=== PATIENT | female | born 1970 | race Two or more races ===

== ENCOUNTER → 2020-10-29 | Emergency (ER) | payer OTHER ==
[~2020-10-29] VITALS: Ht 152.4 cm; Wt 90.7 kg
[~2020-10-29] MED LIST: CLONAZEPAM1 M1; ZOLOFT20 MG/1 ML
== END | disposition home or self-care (01) ==
LOC: ER 11:46
DX: R00.2 Palpitations (principal); F06.4 Anxiety disorder due to known physiological condition

== ENCOUNTER → 2021-06-14 | Emergency (ER) | payer OTHER | END | disposition left against medical advice (07) | LOC: ER 14:08 | DX: Z53.21 Procedure and treatment not carried out due to patient leaving prior to being seen by health care provider (principal) ==